=== PATIENT | female | born 1950 | race Caucasian/White ===

== ENCOUNTER 2023-04-20 07:56 | Outpatient (REF) | payer MEDICARE, SELFPAY ==
[2023-04-20] VITALS (16 sets, daily range): BP systolic 58–144; BP diastolic 59–74
[2023-04-20 08:25] LABS: Hemoglobin 16.1 g/dL (12.0-16.0); Mean Corpuscular Hgb 30.7 pg (27.0-31.0); Mean Corpuscular Volume 87.6 fL (81.0-99.0); Mean Platelet Volume 9.8 fL (7.4-10.4); Platelet Count 204 10^3/uL (130-400); Red Blood Cell Count 5.25 10^6/uL (4.20-5.40); White Blood Cell Count 5.5 10^3/uL (4.8-10.8)
[2023-04-20 08:35] LABS: INR 0.98; PT 13.2 Sec (11.4-14.6)
[2023-04-20] MEDS: MOTRIN 400 MG PO (11:12)
== END 2023-04-20 14:11 | disposition home or self-care (01) ==
LOC: RADI 07:56
PROVIDERS: ATTENDING PHYSICIAN Internal Medicine Gastroenterology; REFERRING PHYSICIAN Surgery
DX: K76.0 Fatty (change of) liver, not elsewhere classified (principal); R79.89 Other specified abnormal findings of blood chemistry; K74.00 Hepatic fibrosis, unspecified; K75.81 Nonalcoholic steatohepatitis (NASH); D68.8 Other specified coagulation defects
CPT/HCPCS: 88305; 36415; 47000; 76942; 85027; 85610; 88313; 99152; 99153

== ENCOUNTER → 2023-05-27 10:52 | Outpatient (REF) | payer MEDICARE, SELFPAY | LOC: RAD 10:52 | PROVIDERS: ATTENDING PHYSICIAN Internal Medicine Endocrinology, Diabetes & Metabolism; FAMILY PHYSICIAN Internal Medicine Geriatric Medicine | DX: M85.88 Other specified disorders of bone density and structure, other site (principal) | CPT/HCPCS: 77080 ==

== ENCOUNTER → 2023-11-04 10:48 | Outpatient (REF) | payer MEDICARE, SELFPAY | LOC: RAD 10:48 | PROVIDERS: ATTENDING PHYSICIAN Internal Medicine Geriatric Medicine | DX: Z87.891 Personal history of nicotine dependence (principal) | CPT/HCPCS: 71271 ==

== ENCOUNTER → 2024-02-14 10:53 | Outpatient (REF) | payer MEDICARE, SELFPAY | LOC: WDC 10:53 | PROVIDERS: ATTENDING PHYSICIAN Obstetrics & Gynecology Gynecology; FAMILY PHYSICIAN Internal Medicine Geriatric Medicine | DX: Z12.31 Encounter for screening mammogram for malignant neoplasm of breast (principal) | CPT/HCPCS: 77063; 77067 ==

== ENCOUNTER → 2024-07-25 08:52 | Outpatient (REF) | payer MEDICARE, SELFPAY | LOC: RAD 08:52 | PROVIDERS: ATTENDING PHYSICIAN Internal Medicine Gastroenterology; FAMILY PHYSICIAN Internal Medicine Geriatric Medicine | DX: K76.0 Fatty (change of) liver, not elsewhere classified (principal) | CPT/HCPCS: 76700 ==

== ENCOUNTER → 2024-11-06 10:46 | Outpatient (REF) | payer MEDICARE, SELFPAY | LOC: HWRAD 10:46 | PROVIDERS: ATTENDING PHYSICIAN Internal Medicine Geriatric Medicine | DX: Z87.891 Personal history of nicotine dependence (principal) | CPT/HCPCS: 71271 ==

== ENCOUNTER → 2025-02-14 11:43 | Outpatient (REF) | payer MEDICARE, SELFPAY | LOC: WDC 11:43 | PROVIDERS: ATTENDING PHYSICIAN Obstetrics & Gynecology Gynecology; FAMILY PHYSICIAN Internal Medicine Geriatric Medicine | DX: Z12.31 Encounter for screening mammogram for malignant neoplasm of breast (principal) | CPT/HCPCS: 77063; 77067 ==